=== PATIENT | female | born 1980 | race Caucasian/White ===

== ENCOUNTER 2017-01-09 22:17 | Emergency (ER) | payer MEDICAID ==
[~2017-01-09] VITALS: Ht 165.1 cm; Wt 79.4 kg
[2017-01-09 22:30] VITALS: BP 142/102
[2017-01-09] MEDS ORDERED: oxyCODONE HCL/Acetaminophen 5/325mg ORAL ONE (22:30)
[2017-01-09] MEDS ORDERED: LIDODERM700 M1 TOPIC (23:03)
[2017-01-09] MEDS ORDERED: ACETAMINOPHEN-1 EAC1 ORAL (23:03)
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
[2017-01-10 00:09] VITALS: BP 134/87
--- NOTE | 2017-01-10 11:44 | Diagnostic Imaging Report ---
Indication: Trauma. Comparison: None Findings: 4 views of the left chest wall was obtained for evaluation of the ribs. Bony mineralization appears normal. There is no acute fracture identified. There is no soft tissue swelling demonstrated. The lung is essentially clear. The costophrenic angle is sharp. Other osseous structures visualized are unremarkable. Impression: Negative unilateral rib series
== END 2017-01-10 00:09 | disposition home or self-care (01) ==
LOC: EMR 22:45
DX: M54.5 Low back pain (principal)
CPT/HCPCS: 99284